=== PATIENT | female | born 1985 | race Caucasian/White ===

== ENCOUNTER 2020-02-01 16:13 | Emergency (ER) | payer MEDICAID ==
[~2020-02-01] VITALS: Ht 162.6 cm; Wt 58.5 kg
[2020-02-01 16:25] VITALS: BP 133/85
[2020-02-01] MEDS ORDERED: cefTRIAXone 1,000 MG in LIDOCAINE MPF 1% 2.1 ML IM ONE (16:50)
--- NOTE | 2020-02-01 16:50 | NUR ---
34 YEAR OLD FEMALE COMPLAINS OF BURNING DURING URINATION X 2 DAYS. PT DENIES ANY CHANGES IN URINE CONSISTENCY OR BLOOD. PT DENIES FLANK PAIN. PT AOX4, BREATHING EVEN AND UNLABORED, SKIN WARM AND DRY. BED IN LOWEST POSITION, LOCKED, BED RAIL UPX1. PMH - RIGHT KIDNEY TRANSPLANT ALLERGIES - NKA
[2020-02-01 16:55] LABS: BILIRUBIN,URINE NEGATIVE (NEGATIVE); BLOOD, URINE NEGATIVE (NEGATIVE); COLOR,URINE YELLOW (YELLOW); LEUKOCYTE ESTERASE ,URINE 1+ (NEGATIVE); NITRITE, URINE NEGATIVE (NEGATIVE); PH,URINE 6.5 (5.0-9.0); UGLUCOSE NEGATIVE (NEGATIVE)
[2020-02-01] MEDS ORDERED: cefTRIAXone 1,000 MG VIAL ONE (16:55)
[2020-02-01] MEDS ORDERED: LIDOCAINE MPF 1% 5 ML ONE (16:55)
[2020-02-01 16:57] LABS: APPEARANCE,URINE HAZY (CLEAR)
[2020-02-01 17:18] LABS: RBC,URINE NONE SEEN /HPF (0-5); WBC,URINE 80-100 /HPF (0-5)
[2020-02-01 17:28] VITALS: BP 125/80
--- NOTE | 2020-02-01 17:28 | NUR ---
Patient discharged with v/s stable. Written and verbal after care instructions given and explained in spanishs and translated by myself. Patient alert, oriented and verbalized understanding of instructions. Ambulatory with steady gait. All questions addressed prior to discharge. ID band removed. Patient advised to follow up with PMD. Rx of Keflex 500mg x7 days and Pyridium 100mg given. Patient educated on indication of medication including possible reaction and side effects. Opportunity to ask questions provided and answered.
--- NOTE | 2020-02-03 15:50 | NUR ---
Urine culture received from lab. Culture and sensitivity received and shown to Dr. Boudreaux. No new orders received. Treatment appropriate. No further care needed. Copy of C&S placed in discrepancy folder.
--- NOTE | 2020-02-03 15:55 | NUR ---
CALLED PATIENT AND NO ANSWER. VOICEMAIL LEFT TO CALL ER BACK TO SPEAK WITH DR. PEREZ REGARDING URINE CULTURES.
--- NOTE | 2020-02-03 16:42 | NUR ---
PATIENT RETURNED CALL AND SPOKE TO DR. PEREZ. DR. PEREZ RECOMMENDED TO PATIENT TO RETURN TO THE ED TODAY/TONIGHT. PT VERBALIZED UNDERSTANDING AND STATED SHE WOULD COME AT HER EARLIEST CONVIENIENCE.
== END 2020-02-01 17:28 | disposition home or self-care (01) ==
LOC: MED 16:13
DX: N39.0 Urinary tract infection, site not specified (principal)
CPT/HCPCS: 81001; 81025; 87086; 87186; 96372; 99283; J0696; J2001

== ENCOUNTER 2020-02-03 17:20 | Emergency (ER) | payer MEDICAID ==
[~2020-02-03] VITALS: Ht 160 cm; Wt 58.5 kg
[2020-02-03 17:25] VITALS: BP 135/88
--- NOTE | 2020-02-03 17:38 | NUR ---
PT WAS CALLED BACK BY ; POSITIVE URINE CULTURE NOT SENSITIVE TO RX GIVEN 2 DAYS AGO AT VISIT IN OUR ER----PT REMAINS WITH DYSURIA, ADMITS NO IMPROVEMENT AT THIS TIME----
--- NOTE | 2020-02-03 17:42 | NUR ---
PT MOVED TO BED 4.
[2020-02-03 18:02] LABS: BASOPHILS # (AUTO) 0.1 K/uL (0.00-0.22); BASOPHILS % (AUTO) 0.8 % (0.0-2.0); EOSINOPHILS # (AUTO) 0.1 K/uL (0-0.4); EOSINOPHILS % (AUTO) 1.2 % (0.0-4.0); HEMATOCRIT 29.8 % (36-48); HEMOGLOBIN 9.1 g/dL (12.0-16.0); LYMPHOCYTES # (AUTO) 1.8 K/uL (2.5-16.5); LYMPHOCYTES % (AUTO) 22.8 % (20.5-51.1); MEAN CORPUSCULAR HEMOGLOBIN 21 pg (27-31); MEAN CORPUSCULAR HGB CONC 31 g/dL (33-37); MEAN CORPUSCULAR VOLUME 69.7 fL (80-94); MONOCYTES # (AUTO) 0.3 K/uL (0.8-1.0); MONOCYTES % (AUTO) 3.7 % (1.7-9.3); NEUTROPHILS # (AUTO) 5.6 K/uL (1.8-7.7); NEUTROPHILS % (AUTO) 71.5 % (42.2-75.2); PLATELET COUNT (AUTO) 498 K/uL (140-450); RED BLOOD CELL COUNT(AUTO) 4.27 MIL/uL (4.20-5.40); RED CELL DISTRIBUTION WIDTH 18.3 % (11.6-13.7); WHITE BLOOD COUNT (AUTO) 7.9 K/uL (4.8-10.8)
[2020-02-03 18:16] LABS: ALBUMIN 3.9 g/dL (3.4-5.0); CARBON DIOXIDE 22.9 mmol/L (21-32); CREATININE 0.9 mg/dL (0.6-1.3); POTASSIUM 3.9 mmol/L (3.5-5.1); TOTAL BILIRUBIN 0.2 mg/dL (0.0-1.0)
--- NOTE | 2020-02-03 19:18 | NUR ---
REPORT GIVEN TO GABI JEROME FOR CONTINUITY OF CARE
--- NOTE | 2020-02-03 19:34 | NUR ---
Patient discharged with v/s stable. Written and verbal after care instructions given and explained. Patient alert, oriented and verbalized understanding of instructions. Ambulatory with steady gait. All questions addressed prior to discharge. ID band removed. Patient advised to follow up with PMD. Rx of TYLENOL AND NITROFURANTION given. Patient educated on indication of medication including possible reaction and side effects. Opportunity to ask questions provided and answered.
== END 2020-02-03 19:34 | disposition home or self-care (01) ==
LOC: MED 17:20
DX: N39.0 Urinary tract infection, site not specified (principal); R03.0 Elevated blood-pressure reading, without diagnosis of hypertension
CPT/HCPCS: 36415; 80053; 85025; 99283

== ENCOUNTER 2020-02-12 15:41 | Emergency (ER) | payer MEDICAID ==
[~2020-02-12] VITALS: Ht 160 cm; Wt 54.4 kg
[2020-02-12 15:43] VITALS: BP 125/78
--- NOTE | 2020-02-12 15:50 | NUR ---
PT AMBULATED TO BED 3 WITH STEADY GAIT.
--- NOTE | 2020-02-12 16:05 | NUR ---
C/O PAINFUL URINATION X 2 DAYS .PT AOR X4 , AFIBRILE , AMBULATORY WITH STEADY GAIT ,PINK PALPARAL CONJUNCTIVA ,ANICTERIC SCLERA, SCE , FLAT SOFT ABDOMEN. HX: RIGHT KIDNEY TRANSPLANT 9 YEARS AGO
--- NOTE | 2020-02-12 16:12 | NUR ---
AT BEDSIDE EVALAUTING PT.
[2020-02-12] MEDS ORDERED: PHENAZOPYRIDINE 100 MG TAB PO ONE (16:30)
[2020-02-12 16:45] VITALS: BP 125/78
--- NOTE | 2020-02-12 16:45 | NUR ---
Patient discharged with v/s stable. Written and verbal after care instructions given and explained regarding UTI. Patient alert, oriented and verbalized understanding of instructions. Ambulatory with steady gait. All questions addressed prior to discharge. ID band removed. Patient advised to follow up with PMD. Rx of nitrofurantoin and pyridium given. Patient educated on indication of medication including possible reaction and side effects. Opportunity to ask questions provided and answered.
[2020-02-12] MEDS ORDERED: NITROFURANTOIN 100 MG CAP PO SCH (17:00)
== END 2020-02-12 16:45 | disposition home or self-care (01) ==
LOC: MED 15:41
DX: N39.0 Urinary tract infection, site not specified (principal); Z98.890 Other specified postprocedural states
CPT/HCPCS: 81002; 81025; 99283

== ENCOUNTER 2020-03-19 20:16 | Emergency (ER) | payer MEDICAID ==
[~2020-03-19] VITALS: Ht 160 cm; Wt 60.0 kg
[2020-03-19 20:20] VITALS: BP 137/95
--- NOTE | 2020-03-19 20:30 | NUR ---
TO BED 11 WITH C/O BURNING WITH UTI SX. IS [place] SPEAKING AND STATES H/O KIDNEY TRANSPLANT 9 YEARS AGO. PT HAS SUPRAPUBIC TENDERNESS. PT IS AWAKE AND ALERT X4.RESPIRATIONS ARE REGULAR AND UNLABORED. AMBULATES WITH STEADY GAIT. + DYSURIA, DENIES HEMATURIA, STATES SHE NOTES A FOUL ODOR WHEN URINATING. DENIES VAGINAL DISCHARGE PMH ; KIDNEY TRANSPLANT 9 YEARS AGO NKDA
[2020-03-19 20:47] LABS: APPEARANCE,URINE CLEAR (CLEAR); BILIRUBIN,URINE NEGATIVE (NEGATIVE); BLOOD, URINE 2+ (NEGATIVE); COLOR,URINE YELLOW (YELLOW); LEUKOCYTE ESTERASE ,URINE 2+ (NEGATIVE); NITRITE, URINE NEGATIVE (NEGATIVE); PH,URINE 5.5 (5.0-9.0); UGLUCOSE NEGATIVE (NEGATIVE)
[2020-03-19 21:21] LABS: WBC,URINE TOO MANY TO COUNT /HPF (0-5)
[2020-03-19 21:25] LABS: RBC,URINE 11-20 (MOD) /HPF (0-5)
[2020-03-19 22:10] VITALS: BP 137/95
--- NOTE | 2020-03-19 22:21 | NUR ---
Patient discharged with v/s stable. Written and verbal after care instructions given and explained. Patient alert, oriented and verbalized understanding of instructions. Ambulatory with steady gait. All questions addressed prior to discharge. ID band removed. Patient advised to follow up with PMD. Rx of PHENAZOPYRIDINE HYDROCHLORIDE, FLAGYL, MACROBID given. Patient educated on indication of medication including possible reaction and side effects. Opportunity to ask questions provided and answered.
[2020-03-22 15:07] LABS: CHLAMYDIA TRACHOMATIS AMP DNA Negative (Negative)
== END 2020-03-19 22:09 | disposition home or self-care (01) ==
LOC: MED 20:16
DX: N39.0 Urinary tract infection, site not specified (principal); N76.0 Acute vaginitis; N28.9 Disorder of kidney and ureter, unspecified; B96.89 Other specified bacterial agents as the cause of diseases classified elsewhere; Z94.0 Kidney transplant status
CPT/HCPCS: 36415; 81001; 81025; 87070; 87086; 87205; 87210; 87491; 99283; 99284

== ENCOUNTER 2020-05-08 13:44 | Emergency (ER) | payer MEDICAID ==
[~2020-05-08] VITALS: Ht 162.6 cm; Wt 59.0 kg
[2020-05-08 13:51] VITALS: BP 124/86
--- NOTE | 2020-05-08 13:56 | NUR ---
PT TAKEN TO BED 12.
--- NOTE | 2020-05-08 14:05 | NUR ---
34/F presents to ED with c/o right flank pain x3 days. Pt denies any burning with urination, dysuria, hematuria. Pt denies fever or chills. Pt reports she has hx of right kidney transplant in 2010 that is located in RLQ per patient. Pt states she has hx of UTI as well. medhx: kidney transplant 2010
[2020-05-08] MEDS ORDERED: HYDROcodone/APAP 5/325 MG 1 TAB TAB PO ONE ×2 (14:50→15:50)
[2020-05-08] MEDS ORDERED: ONDANSETRON 4 MG ODT PO ONE ×2 (14:50→15:50)
[2020-05-08 15:15] LABS: BASOPHILS % (AUTO) 0.7 % (0.0-2.0); EOSINOPHILS % (AUTO) 0.8 % (0.0-4.0); HEMATOCRIT 40.2 % (36-48); LYMPHOCYTES # (AUTO) 1.4 K/uL (2.5-16.5); MEAN CORPUSCULAR HEMOGLOBIN 28 pg (27-31); MEAN CORPUSCULAR HGB CONC 32 g/dL (33-37); MEAN CORPUSCULAR VOLUME 86.5 fL (80-94); MONOCYTES # (AUTO) 0.6 K/uL (0.8-1.0); MONOCYTES % (AUTO) 11.9 % (1.7-9.3); NEUTROPHILS # (AUTO) 3.1 K/uL (1.8-7.7); NEUTROPHILS % (AUTO) 59.6 % (42.2-75.2); PLATELET COUNT (AUTO) 288 K/uL (140-450); RED BLOOD CELL COUNT(AUTO) 4.65 MIL/uL (4.20-5.40); RED CELL DISTRIBUTION WIDTH 19.4 % (11.6-13.7); WHITE BLOOD COUNT (AUTO) 5.1 K/uL (4.8-10.8)
[2020-05-08 15:33] LABS: CARBON DIOXIDE 24.2 mmol/L (21-32); CREATININE 0.8 mg/dL (0.6-1.3); POTASSIUM 3.2 mmol/L (3.5-5.1)
[2020-05-08 15:39] LABS: ALBUMIN 3.6 g/dL (3.4-5.0); TOTAL BILIRUBIN 0.2 mg/dL (0.0-1.0)
--- NOTE | 2020-05-08 15:57 | NUR ---
Pt up to restroom to provide UA specimen.
[2020-05-08] MEDS ORDERED: ONDANSETRON 4 MG/2 ML VIAL IVP ONE (17:10)
[2020-05-08] MEDS ORDERED: MORPHINE SULFATE 4 MG/ML SYR IVP ONE (17:10)
[2020-05-08 18:37] LABS: APPEARANCE,URINE CLEAR (CLEAR); BILIRUBIN,URINE NEGATIVE (NEGATIVE); BLOOD, URINE 3+ (NEGATIVE); COLOR,URINE YELLOW (YELLOW); LEUKOCYTE ESTERASE ,URINE 1+ (NEGATIVE); NITRITE, URINE NEGATIVE (NEGATIVE); UGLUCOSE NEGATIVE (NEGATIVE)
--- NOTE | 2020-05-08 18:50 | NUR ---
RECEVIED REPORT FROM JUSTUS BERRIOS. ASSUMED CARE AT THIS TIME. PT APPEARS TO BE IN NO DISTRESS. ALL NEEDS MET AT THIS TIME.
[2020-05-08 18:54] LABS: RBC,URINE 11-20 (MOD) /HPF (0-5)
--- NOTE | 2020-05-08 19:55 | NUR ---
IV removed, catheter intact and site benign. Applied folded 4x4 gauze and tape to stop bleeding.
[2020-05-08 19:57] VITALS: BP 111/78
--- NOTE | 2020-05-08 19:57 | NUR ---
Patient discharged with v/s stable. Written and verbal after care instructions given and explained. Patient alert, oriented and verbalized understanding of instructions. Ambulatory with steady gait. All questions addressed prior to discharge. ID band removed. Patient advised to follow up with PMD. Rx of NORCO, ZOFRAN, AND DOXYCYCLINE given. Patient educated on indication of medication including possible reaction and side effects. Opportunity to ask questions provided and answered.
== END 2020-05-08 19:57 | disposition home or self-care (01) ==
LOC: MED 13:44
DX: J18.9 Pneumonia, unspecified organism (principal); R10.9 Unspecified abdominal pain; N83.209 Unspecified ovarian cyst, unspecified side; N28.9 Disorder of kidney and ureter, unspecified; Z94.0 Kidney transplant status
CPT/HCPCS: 36415; 74176; 80053; 81001; 81025; 85025; 87040; 87086; 96374; 96375; 99284; J2270; J2405; Q0162

== ENCOUNTER 2020-07-05 08:02 | Emergency (ER) | payer MEDICAID ==
[~2020-07-05] VITALS: Ht 160 cm; Wt 61.2 kg
[2020-07-05 08:10] VITALS: BP 128/85
--- NOTE | 2020-07-05 08:14 | NUR ---
Patient ambulated to bed 3. RN evaluating patient at bedside.
[2020-07-05 09:26] LABS: ANION GAP 14.7 (8-16); CARBON DIOXIDE 24.7 mmol/L (21-32); CREATININE 0.9 mg/dL (0.6-1.3); POTASSIUM 3.4 mmol/L (3.5-5.1)
[2020-07-05 09:30] LABS: APPEARANCE,URINE SL CLOUDY (CLEAR); BILIRUBIN,URINE NEGATIVE (NEGATIVE); BLOOD, URINE 2+ (NEGATIVE); COLOR,URINE YELLOW (YELLOW); LEUKOCYTE ESTERASE ,URINE 1+ (NEGATIVE); NITRITE, URINE POSITIVE (NEGATIVE); UGLUCOSE NEGATIVE (NEGATIVE)
[2020-07-05 10:23] LABS: RBC,URINE NONE SEEN /HPF (0-5); WBC,URINE TOO MANY TO COUNT /HPF (0-5)
[2020-07-05 10:56] VITALS: BP 125/82
--- NOTE | 2020-07-05 11:00 | NUR ---
cleared for d/c by Dr Hewitt; d/c with prescription & instructions on UTI; pt fully understands all materials given re c/c; has no further questions; aox4; VSS; ambulatory with steady gait; no signs of acute distress
== END 2020-07-05 11:00 | disposition home or self-care (01) ==
LOC: MED 08:02
DX: N39.0 Urinary tract infection, site not specified (principal); Z87.448 Personal history of other diseases of urinary system; Z94.0 Kidney transplant status
CPT/HCPCS: 36415; 80048; 81001; 81025; 87086; 99283

== ENCOUNTER 2020-08-23 10:16 | Emergency (ER) | payer MEDICAID ==
[~2020-08-23] VITALS: Ht 160 cm; Wt 59.0 kg
[2020-08-23 10:19] VITALS: BP 124/80
[2020-08-23] MEDS ORDERED: CIPR500T4 PO (10:49)
[2020-08-23] MEDS ORDERED: PYR100 PO (10:49)
[2020-08-23] MEDS ORDERED: cefTRIAXone 1,000 MG in LIDOCAINE MPF 1% 2.1 ML IM ONE (10:50)
[2020-08-23] MEDS ORDERED: LIDOCAINE MPF 1% 5 ML ONE (10:54)
[2020-08-23] MEDS ORDERED: cefTRIAXone 1,000 MG VIAL ONE (10:54)
[2020-08-23 10:56] LABS: APPEARANCE,URINE CLOUDY (CLEAR); BILIRUBIN,URINE NEGATIVE (NEGATIVE); BLOOD, URINE 3+ (NEGATIVE); LEUKOCYTE ESTERASE ,URINE 2+ (NEGATIVE); NITRITE, URINE POSITIVE (NEGATIVE); UGLUCOSE NEGATIVE (NEGATIVE)
[2020-08-23 10:57] LABS: COLOR,URINE ORANGE (YELLOW)
[2020-08-23 11:01] LABS: RBC,URINE TOO NUMEROUS TO COUN /HPF (0-5)
[2020-08-23 11:18] VITALS: BP 124/80
== END 2020-08-23 11:19 | disposition home or self-care (01) ==
LOC: MED 10:16
DX: T86.13 Kidney transplant infection (principal); N39.0 Urinary tract infection, site not specified
CPT/HCPCS: 81001; 81025; 87086; 96372; 99283; J0696; J2001